=== PATIENT | male | born 1960 | race Caucasian/White ===

== ENCOUNTER 2019-07-12 15:02 | Inpatient (IN) ==
[2019-07-12] MEDS ORDERED: ASPIRIN PO ONE (15:24)
[2019-07-12 15:42] LABS: BASO# 0.06 X1000 (0.0-0.2); BASO% 0.7 % (0.0-0.8); EOS# 0.17 X1000 (0.0-0.7); EOS% 1.9 % (0.0-10.0); HEMATOCRIT 45.3 % (42.0-52.0); IMM GRAN# 0.02 X1000 (0.0-0.04); IMM GRAN% 0.2 % (0.0-0.5); LYMPH% 18.1 % (20.5-51.1); MCH 29.5 PG (27-31); MCHC 33.1 g/dL (33-37); MCV 89.2 FL (81-99); MONO# 0.48 X1000 (0.11-0.59); MONO% 5.4 % (1.7-9.3); MPV 10.2 FL (7.4-10.4); NEUT# 6.49 X1000 (1.4-6.5); NEUT% 73.7 % (42.2-75.2); PLT 300 X1000 (130-400); RBC 5.08 XMIL (4.7-6.1); RDW 12.8 % (11.5-14.5); WBC 8.82 X1000 (4.8-10.8)
[2019-07-12 15:47] LABS: INR 0.93; PROTIME 12.6 Seconds (11.0-16.0)
[2019-07-12 15:48] LABS: PTT 26.5 Seconds (22.3-41.8)
[2019-07-12 16:05] LABS: AGAP 23; ALB/GLOB RATIO 1.7; ALBUMIN 4.6 g/dL (3.5-5.0); ALKALINE PHOSPHATASE 95 U/L (32-122); BUN 13 mg/dL (8-22); CALCIUM 9.2 mg/dL (8.8-10.2); CHLORIDE 96 mmol/L (98-107); CK PROFILE 184 U/L (24-204); COSMO 280; ESTIMATED GFR > 60; GLUCOSE 140 mg/dL (70-104); GOT 37 U/L (10-34); GPT 35 U/L (10-44); POTASSIUM 4.4 mmol/L (3.5-5.1); SODIUM 139 mmol/L (136-145); TCO2 20 mmol/L (25-35); TOTAL PROTEIN 7.3 g/dL (6.3-8.3)
--- NOTE | 2019-07-12 16:13 | Diag Imaging Result Doc PS360 ---
EXAM: CHEST-2 VIEWS HISTORY: chest pain TECHNIQUE: Two views COMPARISON: None. FINDINGS: The lungs are well expanded. The heart is not enlarged. The vessels are not distended. There are no infiltrates. No pleural effusions. IMPRESSION: No acute abnormality. Electronically signed by Luis Alberto Salgado 07/12/2019 4:10 PM
[2019-07-12] MEDS ORDERED: ZOFRAN IV ONE (17:50)
[2019-07-12] MEDS ORDERED: NS 1,000 ML IV ONE (17:50)
[2019-07-12] MEDS ORDERED: NITROGLYCERIN TOP ONE (17:50)
[2019-07-12] MEDS ORDERED: MORPHINE IV ONE (17:51)
--- NOTE | 2019-07-12 18:09 | PROVIDER DOCUMENTATION ---
HPI-General Adult - General Chief Complaint: Chest Pain Stated Complaint: CP Time Seen by Provider: 07/12/19 17:46 Source: patient - History of Present Illness -Gen Adult Nature of Presenting Problems: Pt. is 59 yom that presents with c/o CP that he describes as pressure like someone sitting on him. He reports nausea, SOB and pain radiating into his left arm. He denies any cardiac Hx. Pt. is very anxious. Location of Pain/Injury: reports: chest. denies: none, head, face, mouth, neck, upper extremity, hand(s), abdomen, back, pelvis, genitalia, lower extremity, feet, upper body, lower body, generalized, other Pain Radiation: reports: arm(s) (Left). denies: no radiation, back, buttocks, chest, epigastric, feet, groin, jaw, flank (L), legs (lower), LLQ, LUQ, neck, periumbilical, flank (R), RLQ, RUQ, shoulder(s), scapula, scrotal, sternal notc h, suprapubic, legs (upper), urethral, vaginal, other Quality of Pain: reports: aching, pressure, tightness. denies: cramping, fullness, throbbing Severity: reports: moderate. denies: mild, severe Onset/Duration: reports: abrupt, this afternoon Timing: reports: still present. denies: improving, intermittent, getting worse Context/Activities at Onset: reports: none. denies: light activity, moderate activity, vigorous activity, recent emotional stress, recent physical stress, recent trauma history, possible bad food, cold exposure, eating, out of country travel, rest, sleep, sexual activity, other Modifying Factors: improves with: nothing Associated Symptoms: reports: chest pain, nausea, shortness of breath. denies: denies symptoms, anxiety, arm pain, back/neck pain, constipation, cough, diaphoresis, diarrhea, dizziness, EENT symptoms, fatigue, fever/chills, genitourinary problems, headaches, heartburn, joint pain, loss of appetite, malaise, muscle aches, sinus congestion/drainage, rash, seizure, sensory/motor loss, pain with inspiration, swelling/mass in abdomen, syncope, vomiting, weakness, trouble walking, other Similar Symptoms Previously?: No Recently seen or treated by another doctor?: No Review of Systems - Adult - REVIEW OF SYSTEMS - ADULT Constitutional: reports: no symptoms reported Eyes: reports: no symptoms reported Ears, Nose, Mouth & Throat: reports: no symptoms reported Cardiovascular: reports: see HPI, chest pain. denies: orthopnea, palpitations, syncope Respiratory: reports: see HPI, shortness of breath. denies: chronic cough, cough, pleurisy Gastrointestinal: reports: see HPI, nausea. denies: hematemesis, diarrhea, vomiting Genitourinary: reports: no symptoms reported Musculoskeletal: reports: no symptoms reported Integumentary: reports: no symptoms reported Neurological: reports: no symptoms reported Psychiatric: reports: no symptoms reported Past History - Adult - PAST MEDICAL HISTORY-ADULT Review of Records: reports: Old Records Reviewed, Nursing Assessment Review, Medications Reviewed, Social history reviewed & non-contributory. - IMMUNIZATION STATUS Childhood Immunizations: See Nurse Assessment Flu Vaccine: See Nurse Assessment - FAMILY HISTORY Family History: reviewed, not pertinent - SOCIAL HISTORY Smoking: denies Physical Exam-General - PHYSICAL EXAM-ADULT Initial Vital Signs Reviewed: Yes - CONSTITUTIONAL General Appearance: alert, moderate distress, anxious. negative: slow to respond, obtunded, combative - EYES Eyes: PERRL/EOMI, pink conjunctivae - HEAD, EARS, NOSE, MOUTH & THROAT HENMT: normocephalic/atraumatic, moist mucous membranes - NECK Neck: non-tender, full range of motion, supple, normal inspection - RESPIRATORY Respiratory: lungs clear, normal breath sounds - CARDIOVASCULAR Cardiovascular: regular rate, rhythm, no edema, tachycardia - GASTROINTESTINAL (ABDOMEN) Abdominal Exam: normal bowel sounds, non tender, soft - LYMPHATIC Lymphatic: no adenopathy - MUSCULOSKELETAL Back Exam: normal inspection, no CVA tenderness, no vertebral tenderness Extremity: normal range of motion, non-tender, normal gait, normal inspection. negative: deformity, erythema, inflammation, swelling, tenderness Peripheral Pulses: radial (R): 2+, radial (L): 2+ - SKIN Integumentary: pallor. negative: cyanosis, jaundice, tenderness - NEUROLOGIC Neurologic: grossly normal, no motor/sensory deficits - PSYCHIATRIC Psych/Mental Status: normal mood/affect, normal thought content, normal thought process, oriented x 3. negative: anxious, paranoid, tearful Progress - PLAN OF CARE/RESULTS Progress/Plan/Lab Results: Vital Signs - 8 hr 07/12/19 15:13 Temperature 98.6 F Pulse Rate 108 H Respiratory Rate 20 Blood Pressure 121/81 O2 Sat by Pulse Oximetry 96 Laboratory Results - last 24 hr 07/12/19 07/12/19 07/12/19 15:27 15:27 15:27 WBC 8.82 RBC 5.08 Hgb 15.0 Hct 45.3 MCV 89.2 MCH 29.5 MCHC 33.1 RDW Std Deviation 12.8 Plt Count 300 MPV 10.2 Immature Gran % (Auto) 0.2 Neut % (Auto) 73.7 Lymph % (Auto) 18.1 L Osborne % (Auto) 5.4 Eos % (Auto) 1.9 Baso % (Auto) 0.7 Immature Gran # (Auto) 0.02 Neut # (Auto) 6.49 Lymph # (Auto) 1.60 Osborne # (Auto) 0.48 Eos # (Auto) 0.17 Baso # (Auto) 0.06 PT INR PTT (Actin FS) Sodium 139 Potassium 4.4 Chloride 96 L Carbon Dioxide 20 L Anion Gap 23 BUN 13 Creatinine 1.0 Estimated GFR/1.73 m2 > 60 BUN/Creatinine Ratio 13 Glucose 140 H Calculated Osmolality 280 Calcium 9.2 Total Bilirubin 0.30 AST 37 H ALT 35 Alkaline Phosphatase 95 Creatine Kinase 184 Troponin T Nbw-B-Uzflsgdubvz Pept 17 Total Protein 7.3 Albumin 4.6 Globulin 2.7 Albumin/Globulin Ratio 1.7 07/12/19 07/12/19 15:27 15:27 WBC RBC Hgb Hct MCV MCH MCHC RDW Std Deviation Plt Count MPV Immature Gran % (Auto) Neut % (Auto) Lymph % (Auto) Osborne % (Auto) Eos % (Auto) Baso % (Auto) Immature Gran # (Auto) Neut # (Auto) Lymph # (Auto) Osborne # (Auto) Eos # (Auto) Baso # (Auto) PT 12.6 INR 0.93 PTT (Actin FS) 26.5 Sodium Potassium Chloride Carbon Dioxide Anion Gap BUN Creatinine Estimated GFR/1.73 m2 BUN/Creatinine Ratio Glucose Calculated Osmolality Calcium Total Bilirubin AST ALT Alkaline Phosphatase Creatine Kinase Troponin T < 0.010 Tus-Y-Aceajzbcxxp Pept Total Protein Albumin Globulin Albumin/Globulin Ratio Orders Category Date Time Status Cardiac Monitoring DIRECTED Care 07/12/19 15:24 Active Oxygen Therapy- ED Nursing DIRECTED Care 07/12/19 15:24 Active Saline Loc NOW Care 07/12/19 15:24 Active CHEST-2 VIEWS [RAD] Stat Exams 07/12/19 15:24 Completed CBC WITH ELECTRONIC DIFF [HEME] Stat Lab 07/12/19 15:27 Completed CK PROFILE [SP CHEM] Stat Lab 07/12/19 15:27 Completed CK PROFILE [SP CHEM] Stat Lab 07/12/19 17:46 Uncollected COMPREHENSIVE METABOLIC PANEL [CHEM] Stat Lab 07/12/19 15:27 Completed PRO B-NATRIURETIC PEPTIDE Stat Lab 07/12/19 15:27 Completed PROTIME WITH INR [COAG] Stat Lab 07/12/19 15:27 Completed PTT [COAG] Stat Lab 07/12/19 15:27 Completed TROPONIN T Stat Lab 07/12/19 15:27 Completed TROPONIN T Stat Lab 07/12/19 17:46 Uncollected 0.9% Sodium Chloride Inj [Ns] 1,000 ml Med 07/12/19 17:50 Discontinued IV KVO mls/hr Aspirin Med 07/12/19 15:24 Discontinued 325 mg PO NOW ONE Morphine Med 07/12/19 17:51 Discontinued 2 mg IV NOW ONE Nitroglycerin Med 07/12/19 17:50 Discontinued 1 inch TOP NOW ONE Ondansetron [Zofran] Med 07/12/19 17:50 Discontinued 4 mg IV NOW ONE CP/SOB/Palp >45 yrs of Age Stat Oth 07/12/19 15:24 Ordered EKG [EKG] Stat Ther 07/12/19 15:21 Ordered EKG [EKG] Stat Ther 07/12/19 17:46 Ordered Laboratory Tests 07/12/19 07/12/19 07/12/19 15:27 15:27 15:27 WBC 8.82 RBC 5.08 Hgb 15.0 Hct 45.3 MCV 89.2 MCH 29.5 MCHC 33.1 RDW Std Deviation 12.8 Plt Count 300 MPV 10.2 Immature Gran % (Auto) 0.2 Neut % (Auto) 73.7 Lymph % (Auto) 18.1 L Osborne % (Auto) 5.4 Eos % (Auto) 1.9 Baso % (Auto) 0.7 Immature Gran # (Auto) 0.02 Neut # (Auto) 6.49 Lymph # (Auto) 1.60 Osborne # (Auto) 0.48 Eos # (Auto) 0.17 Baso # (Auto) 0.06 PT INR PTT (Actin FS) Sodium 139 Potassium 4.4 Chloride 96 L Carbon Dioxide 20 L Anion Gap 23 BUN 13 Creatinine 1.0 Estimated GFR/1.73 m2 > 60 BUN/Creatinine Ratio 13 Glucose 140 H Calculated Osmolality 280 Calcium 9.2 Total Bilirubin 0.30 AST 37 H ALT 35 Alkaline Phosphatase 95 Creatine Kinase 184 Troponin T Acm-Y-Poehlqsoyxn Pept 17 Total Protein 7.3 Albumin 4.6 Globulin 2.7 Albumin/Globulin Ratio 1.7 07/12/19 07/12/19 15:27 15:27 WBC RBC Hgb Hct MCV MCH MCHC RDW Std Deviation Plt Count MPV Immature Gran % (Auto) Neut % (Auto) Lymph % (Auto) Osborne % (Auto) Eos % (Auto) Baso % (Auto) Immature Gran # (Auto) Neut # (Auto) Lymph # (Auto) Osborne # (Auto) Eos # (Auto) Baso # (Auto) PT 12.6 INR 0.93 PTT (Actin FS) 26.5 Sodium Potassium Chloride Carbon Dioxide Anion Gap BUN Creatinine Estimated GFR/1.73 m2 BUN/Creatinine Ratio Glucose Calculated Osmolality Calcium Total Bilirubin AST ALT Alkaline Phosphatase Creatine Kinase Troponin T < 0.010 Jqf-T-Odmvwbqqrtz Pept Total Protein Albumin Globulin Albumin/Globulin Ratio Discussed results and plan of care with patient. Patient agrees with plan and verbalizes understanding. Result Diagrams: 07/12/19 15:27 07/12/19 15:27 - EKG 1 Time of EKG reading by physician:: 14:13 EKG Read and Signed by:: Jasmeet Huizar EKG Interpretation (*Must complete 3 of following elements*): Abnormal Rate: 111 Rhythm: Sinus tach [place]: left QRS: normal [place] Interval: normal ST Wave: normal 2 Time of EKG reading by physician:: 17:59 EKG Read and Signed by:: Jasmeet Huizar EKG Interpretation (*Must complete 3 of following elements*): Abnormal Rate: 86 Rhythm: Sinus [place]: left QRS: normal [place] Interval: normal ST Wave: normal - XRAY 1 XRAY Study: Chest ([facility] - [address] , [address], [place] [address] [place] [address] Department of Imaging Patient: YANIRA SNYDER Date: 07/12/19#: [id number] : 1960ADM Status: PRE ERAcct#: [id number] Age/Sex: 59/MRoom/Bed: Loc: ED Ordering Physician: Jasmeet Huizar MD Family Physician: None,PCP Reason for Procedure: chest pain Signed EXAM: CHEST-2 VIEWS HISTORY: chest pain TECHNIQUE: Two views COMPARISON: None. FINDINGS: The lungs are well expanded. The heart is not enlarged. The vessels are not distended. There are no infiltrates. No pleural effusions. IMPRESSION: No acute abnormality. Electronically signed by Luis Alberto Salgado 07/12/2019 4:10 PM 07/12/19 161 Interpreting Physician: Luis Alberto Salgado MD Dictated Date/Time: 07/12/191609 cc: Jasmeet Huizar MD; None,PCP) XRAY Interpretation: See note - CONSULTS/PCP/HOSPITALIST Notification #1 *Consult/PCP/Hospitalist*: Vickie for hospitilist Time Discussed: 18:05 Reason/Comments: Admission Consult Disposition: Will see in ED, Admit Departure - Departure Date of Disposition Decision: 07/12/19 Time of Disposition Decision: 18:04 DIAGNOSIS: Shortness of breath Chest pain Qualifiers: Chest pain type: unspecified Qualified Code(s): R07.9 - Chest pain, unspecified Disposition: ADMITTED INPATIENT 09 Certified Medical Emergency: Emergent Condition: Stable Referrals and Follow-Ups: None,PCP [Primary Care Provider] - - Critical Care Note This patient required my direct & personal management of CC.: No Attestation - Physician/ JYOTI Attestation Patient care was provided by Advanced Practice Provider:: Yes Advanced Practice Provider:: Bernard Lopez Advanced Practice Provider documentation review:: The Mid-level provider documentation, treatment plan and medical decision making was reviewed by the physician who agrees with all treatment and medical decision making by the MLP. The physician spent face to face time with patient:: No Advanced Practice Provider documentation review:: Supervising physician onsite and consulted in the evaluation and care of this patient. The physician did not have a face to face encounter with the patient.
[2019-07-12] MEDS ORDERED: TYLENOL PO PRN (18:19)
--- NOTE | 2019-07-12 19:10 | Diag Imaging Result Doc PS360 ---
EXAM: CT ANGIOGRM PULMONARY ARTERIES HISTORY: SOB with CP TECHNIQUE: CT chest with intravenous contrast. Pulmonary arterial protocol with MIP images COMPARISON: None. FINDINGS: Suboptimal timing, but no central pulmonary emboli. No aortic aneurysm or dissection. No cardiomegaly. No pleural effusions. No enlarged lymph nodes. No infiltrates. No emphysema. No bronchiectasis. There is fatty infiltration of the liver. IMPRESSION: No pulmonary emboli identified This exam was performed using automated exposure control, adjustment of mA or kV according to patient size, and/or use of iterative reconstruction technique. Electronically signed by Luis Alberto Salgado 07/12/2019 7:08 PM
--- NOTE | 2019-07-12 19:15 | HISTORY AND PHYSICAL ---
CHIEF COMPLAINT: Left-sided chest pain, left arm pain, shortness of breath, nausea. HISTORY OF PRESENT ILLNESS: This is a 59-year-old gentleman, who presented to the emergency room complaining of a sudden onset of left-sided chest pain that he described as stabbing pressure type pain. He has had persistent shortness of breath since pains began. He does have shortness of breath with walking across a flat floor. He has not tried stairs. He does describe some pain and "a funny feeling" that goes into his axillary area, down the underside of his arm down to his palm. 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 He denied any syncope, any vomiting, any palpitations. Mr. Mason also complained of pain to his left leg, particularly in his calf. He does have a positive Homans sign. He states that he has had difficulty walking. Over the last 3 to 4 days, walking has become more difficult due to the pain. He recently traveled from [place] to [place], then from [place] back to [place], sitting for long periods of time, and he states the left leg pain started within 24 hours of travel. PAST MEDICAL HISTORY: Denies. PAST SURGICAL HISTORY: Denies. SOCIAL HISTORY: He denies any alcohol, tobacco or illicit drug use. FAMILY HISTORY: The patient denies any blood clots, clotting disorders. He does state his grandparents have hypertension. He denies any coronary artery disease. ALLERGIES: None recorded. HOME MEDICATIONS: None. REVIEW OF SYSTEMS: This is discussed with the patient with pertinent positives stated in the HPI. He denied any syncope, any palpitations, any vomiting, diarrhea, constipation, black or bloody vomitus or stools, hematuria, dysuria, frequency or urgency. No fevers or chills. PHYSICAL EXAMINATION: GENERAL: This is a 59-year-old gentleman, who is sitting on the stretcher in the emergency room, who is anxious. VITAL SIGNS: Blood pressure is 121/81 with a heart rate of 108, respirations are 20, temperature is 98.6 degrees with room air saturation 96%. EYES: Pupils are equal, round, react to light. EOMS are intact. Sclerae are anicteric. HENT: Head is normocephalic, atraumatic. Mucous membranes are moist. NECK: Supple with trachea midline. No JVD. CARDIOVASCULAR: Regular rate and rhythm. S1 and S2 appreciated. No murmur. No S3. He has no lower extremity edema. Right calf is nontender; left calf is tender with peripheral pulses palpable x4 extremities. PULMONARY: Breath sounds are clear with no increased work of breathing noted. Chest rises and falls symmetric with respiration. Chest wall is nontender to palpation. GASTROINTESTINAL: Abdomen is soft, nontender, nondistended with bowel sounds in all 4 quadrants. GENITOURINARY: No CVA or suprapubic tenderness. NEUROLOGIC: He is alert and oriented x3. SKIN: Warm and dry. LABS: WBC is 8.8 with a hemoglobin of 15, hematocrit of 45.3, and platelets of 300. INR is 0.93. Sodium 139, potassium 4.4, BUN 13, creatinine 1 with a glucose of 140. Troponins are negative on multiple occasions. CTA pulmonary pending. X-RAYS: Chest x-ray reveals no acute abnormality. ASSESSMENT: 1. Left-sided chest pressure. 2. Shortness of breath. 3. Left calf pain with a positive Homans sign. 4. Tachycardia. PLAN: The patient will be admitted to the medical floor. He will be placed on telemetry continue with IV hydration, giving morphine for pain and Zofran for nausea. trend troponins and cardiac profile. CBC , BMP,and EKG in the morning. venous Doppler of his lower extremities Further treatments pending hospital course. Dictated by LISSETT Borja for Fernando Huerta MD cc: LISSETT Borja MD [facility]
--- NOTE | 2019-07-12 20:07 | HISTORY AND PHYSICAL ---
ADDENDUM: HISTORY: Mr. Mason came in this more this afternoon with acute onset of left-sided chest pain associated with some nauseation and vomit, according to him, and left calf pain. Upon presentation, his blood pressure was 121/81, pulse of 108, respirations 20, temperature 98.6 degrees. Mr. Mason denies any alcohol or tobacco use. His current physical exam for most part is unremarkable except for some chest tenderness on the costochondral joints. LABORATORY DATA: Has also been reviewed. CBC is completely normal. CMP is also normal. STUDIES: An initial chest x-ray showed no acute abnormality. A CTA of the lungs is also completely negative for pulmonary emboli and no obvious pneumonia or any other parenchymal disease. So far his troponins have been done twice and are negative. His EKG was sinus. There was no ST-T wave abnormality. ASSESSMENT: Atypical chest pain. Some features are more consistent with costochondral. However, we are going to admit him to rule out any coronary artery. So far his troponins have been twice negative. A CT of the lungs is also negative. Please refer to the details of the history and physical that have been dictated by the BUNCHER MACHINE in the chart. cc: Fernando Huerta MD
--- NOTE | 2019-07-12 20:37 | EKG Report ---
Test Performed on : 07/12/2019 5:56:30 PM Test Reason : CP Blood Pressure : / mmHG Vent. Rate : 086 BPM Atrial Rate : 086 BPM P-R Int : 168 ms QRS Dur : 088 ms QT Int : 366 ms P-R-T Axes : 048 -39 031 degrees QTc Int : 437 ms Normal sinus rhythm. Possible Left atrial enlargement Left axis deviation Abnormal ECG When compared with ECG of 12-JUL-2019 15:08, (Unconfirmed) No significant change was found Unconfirmed Result
[2019-07-12] MEDS: MORPHINE IV PRN (20:55)
[2019-07-12] MEDS: ZOFRAN IV PRN (21:21)
--- NOTE | 2019-07-12 21:22 | EKG Report ---
Test Performed on : 07/12/2019 3:08:48 PM Test Reason : CP Blood Pressure : / mmHG Vent. Rate : 111 BPM Atrial Rate : 111 BPM P-R Int : 160 ms QRS Dur : 082 ms QT Int : 332 ms P-R-T Axes : 047 -81 033 degrees QTc Int : 451 ms Sinus tachycardia. Possible Left atrial enlargement Left axis deviation Inferior infarct , age undetermined Abnormal ECG No previous ECGs available Unconfirmed Result
[2019-07-12] MEDS: NS 1,000 ML IV SCH (21:41)
[2019-07-12] MEDS: NORCO-7.5 PO PRN (21:41)
[2019-07-13] MEDS: MORPHINE IV PRN ×4 (00:58→21:07)
[2019-07-13] MEDS: ZOFRAN IV PRN ×4 (00:58→18:19)
[2019-07-13] MEDS ORDERED: G.I. COCKTAIL PO ONE (02:12)
[2019-07-13] MEDS: ATIVAN IV PRN ×4 (02:27→22:41)
[2019-07-13] MEDS: NS 1,000 ML IV SCH ×4 (05:03→22:41)
[2019-07-13] MEDS: NORCO-7.5 PO PRN (05:03)
[2019-07-13] MEDS: PRILOSEC PO SCH ×2 (05:04→06:03)
[2019-07-13 07:31] LABS: BASO# 0.03 X1000 (0.0-0.2); BASO% 0.4 % (0.0-0.8); EOS# 0.14 X1000 (0.0-0.7); EOS% 1.7 % (0.0-10.0); HEMATOCRIT 39.4 % (42.0-52.0); LYMPH# 1.05 X1000 (1.2-3.4); LYMPH% 12.4 % (20.5-51.1); MCV 90.8 FL (81-99); MONO# 0.67 X1000 (0.11-0.59); MONO% 7.9 % (1.7-9.3); MPV 10.7 FL (7.4-10.4); NEUT# 6.55 X1000 (1.4-6.5); NEUT% 77.6 % (42.2-75.2); PLT 204 X1000 (130-400); RBC 4.34 XMIL (4.7-6.1); RDW 12.8 % (11.5-14.5); WBC 8.44 X1000 (4.8-10.8)
[2019-07-13 07:45] LABS: AGAP 11; BUN 11 mg/dL (8-22); CALCIUM 8.3 mg/dL (8.8-10.2); CHLORIDE 97 mmol/L (98-107); COSMO 273; ESTIMATED GFR > 60; GLUCOSE 186 mg/dL (70-104); POTASSIUM 4.1 mmol/L (3.5-5.1); SODIUM 134 mmol/L (136-145); TCO2 26 mmol/L (25-35)
--- NOTE | 2019-07-13 09:52 | EKG Report ---
Test Performed on : 07/13/2019 05:41:23 AM Test Reason : cp Blood Pressure : / mmHG Vent. Rate : 096 BPM Atrial Rate : 096 BPM P-R Int : 172 ms QRS Dur : 088 ms QT Int : 364 ms P-R-T Axes : 046 -41 024 degrees QTc Int : 459 ms Normal sinus rhythm. Left axis deviation Abnormal ECG When compared with ECG of 12-JUL-2019 17:56, (Unconfirmed) No significant change was found Confirmed by Jj GREEN, P.J.M ([id number]) on 07/14/2019 1:10:36 PM
--- NOTE | 2019-07-13 10:05 | PROGRESS NOTE ---
DATE: 07/13/2019 SUBJECTIVE: Today Mr. Mason refers to be doing a little better. He said he had an episode of chest discomfort, some nauseation and vomited multiple times yesterday. Almost at the end of the encounter, Mr. Mason told us he lost his 18-year-old daughter about 2 months ago to leukemia. He also lost his dad and his mom recently, all of which according to him is putting a lot of stress on him, and he has sought to use a lot of alcohol. He said he takes about 8 to 12 bottles of the 24-ounce alcohol which is beer 8% on a daily basis. This morning he obviously looks quite flushed. He is fidgeting. He has some residual tremors. OBJECTIVE: Current vitals: Blood pressure is 119/75, pulse of 79, respirations 20, temperature is 97.9 degrees. General exam: Mr. Mason is a 59-year-old gentleman. He is in bed. He does not look to be in any cardiopulmonary distress. HEENT: Mucosa is pink. Anicteric. Acyanotic. Neck: Supple. Chest: Clear. Cardiovascular: Regular rate and rhythm. Abdomen: Soft, nontender. Extremities: No pedal edema. 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 He is conversational. He looks slightly pressured on his wording and he looks tremulous. LABORATORY DATA: CBC is for the most part unremarkable. Chemistry is also okay, except sodium that is 134. The patient had troponin 4 times and they have all been negative. IMAGING STUDIES: Imaging studies that were done yesterday: A chest x-ray showed no acute abnormality. A CTA showed no pulmonary emboli identified. An EKG which was repeated yesterday did not show any acute changes either. ASSESSMENT: 1. Chest pain, most likely musculoskeletal in nature. 2. History of alcohol use and abuse with patient showing signs of withdrawal. We are going to put him on Librium as needed, Ativan, gabapentin, and re-evaluate him. The patient will also be started on banana bag and continue with intravenous fluids. 3. Questionable situational anxiety and depressive disorder. cc: Fernando Huerta MD
[2019-07-13 11:41] LABS: UR AMPHETAMINES QUAL NONE DETECTED (NONE DETECT); UR BARBITUATES QUAL NONE DETECTED (NONE DETECT); UR BENZODIAZEPIN QUAL NONE DETECTED (NONE DETECT); UR CANNABINOIDS QUAL NONE DETECTED (NONE DETECT); UR COCAINE QUAL NONE DETECTED (NONE DETECT); UR METHADONE QUAL NONE DETECTED (NONE DETECT); UR OPIATES QUAL PRESUMPTIVE POSITIVE (NONE DETECT); UR OXYCODONE QUAL NONE DETECTED (NONE DETECT); UR PCP QUAL NONE DETECTED (NONE DETECT)
[2019-07-13] MEDS: NEURONTIN PO SCH ×2 (12:29→21:06)
[2019-07-13] MEDS: LIBRIUM PO SCH ×2 (12:29→21:06)
[2019-07-13] MEDS: ROBAXIN PO SCH (21:07)
[2019-07-14] MEDS: ATIVAN IV PRN ×2 (04:22→10:15)
[2019-07-14] MEDS: MORPHINE IV PRN ×2 (04:22→08:17)
[2019-07-14] MEDS: PRILOSEC PO SCH (06:12)
[2019-07-14 06:58] LABS: BASO# 0.04 X1000 (0.0-0.2); BASO% 0.7 % (0.0-0.8); EOS% 10.5 % (0.0-10.0); HEMATOCRIT 39.2 % (42.0-52.0); HEMOGLOBIN 12.5 g/dL (14.0-18.0); LYMPH# 1.19 X1000 (1.2-3.4); LYMPH% 20.9 % (20.5-51.1); MCH 29.8 PG (27-31); MCHC 31.9 g/dL (33-37); MCV 93.6 FL (81-99); MONO# 0.62 X1000 (0.11-0.59); MONO% 10.9 % (1.7-9.3); MPV 10.4 FL (7.4-10.4); NEUT# 3.25 X1000 (1.4-6.5); PLT 187 X1000 (130-400); RBC 4.19 XMIL (4.7-6.1)
[2019-07-14] MEDS: NORCO-7.5 PO PRN (07:43)
[2019-07-14] MEDS: NEURONTIN PO SCH (08:16)
[2019-07-14] MEDS: LIBRIUM PO SCH (08:16)
[2019-07-14] MEDS: ROBAXIN PO SCH (08:16)
[2019-07-14 08:17] VITALS: BP 129/78
[2019-07-14] MEDS: ZOFRAN IV PRN (08:17)
[2019-07-14] MEDS ORDERED: M.V.I.-12 10 ML, FOLIC ACID 1 MG, MAGNESIUM SULFATE 1 GM, THIAMINE 100 MG in NS 1,000 ML IV SCH (09:00)
[2019-07-14] MEDS: NS 1,000 ML IV SCH (09:30)
--- NOTE | 2019-07-14 11:24 | Extremity Venous Study ---
PROCEDURE NAME: Venous U/S Bilateral Legs - 07/12/2019 REAMING MACHINE OPERATOR FOR PLASTIC: Yvan. REQUESTING PHYSICIAN: Ellie. INDICATIONS: Left calf pain with normal D-dimer. FINDINGS: The deep and superficial veins of the bilateral lower extremities were visualized along their course. All vessels were compressible with forward flow. No evidence of intraluminal thrombus. There was an incidentally noted left popliteal fossa cyst. SUMMARY: Left Wharton's cyst. No deep venous DVT or superficial thrombus noted in the bilateral lower extremities. cc: MD Erma Tavarez CRNP
--- NOTE | 2019-07-14 16:00 | DISCHARGE SUMMARY ---
ADMISSION DATE: 07/12/2019 DISCHARGE DATE: 07/14/2019 DISPOSITION: Home. CONSULTATION DURING THIS ADMISSION: None. INVASIVE PROCEDURES DONE DURING THIS ADMISSION: None. IMAGING STUDIES OF SIGNIFICANCE: 1. Chest x-ray showed no acute abnormality. 2. Extremity Doppler ultrasound showed no DVT. There was a left Wharton's cyst. 3. CT angio of the pulmonary arteries showed no pulmonary emboli. EKG: The patient had EKG 3 times. No acute changes noted. ADMISSION DIAGNOSES: 1. Left-sided chest pressure. 2. Shortness of breath. 3. Left calf pain. 4. Tachycardia. DIAGNOSIS AT TIME OF DISCHARGE: 1. Chest pain secondary to musculoskeletal (costochondritis). 2. Alcohol use and abuse. 3. Mild signs of alcohol withdrawal during the hospital course. 4. History of anxiety and depression disorder. DISCHARGE MEDICATIONS: 1. Gabapentin 100 mg b.i.d. 2. Omeprazole 40 mg p.o. daily. 3. Robaxin 500 b.i.d. 4. Librium 5 mg b.i.d. 5. Tylenol 650 p.o. p.r.n. PRESENTING COMPLAINT: Left-sided chest pain, shortness of breath. HISTORY OF PRESENTING COMPLAINT: Mr. Mason is a 59-year-old male who presented to the emergency department because of acute onset of left-sided chest pain. According to him, he had just traveled on a long trip from [place] to [place], then [place] to [place], and since then he has been having this chest pain, left side, associated with shortness of breath. He was admitted initially to rule out any cardiac issue. We did also have a CTA of the lungs to rule out any PE, which came back negative. Mr. Mason was admitted to the medical floor. HOSPITAL COURSE: Mr. Mason was admitted to the medical floor, was fluid resuscitated. Pain was controlled with both p.o. and IV pain medications. He felt better. I understand the night after his admission he had multiple episodes of nausea and vomiting. He became very confused and agitated. The morning of yesterday he seemed slightly tremulous, so we asked him about his alcohol use, and he was very open and said he drinks a lot, usually more than about 8 to 12 bottles of the big 24 ounce beer bottles, and that he has been going through a lot of issues that he is having difficulty to adjust to. He was found to be in mild alcohol withdrawal. He was started on Librium and gabapentin. This morning, he feels a whole lot better. Per the nursing staff, he has been very time-conscious demanding his pain medications, however. In any case, all his troponins have been trended 4 times; they have been negative. His EKG has also been unrevealing. On physical exam, he has more tenderness on palpation of the costochondral joint. We think his current chest pain is noncardiac, and also we think he was withdrawing slightly from alcohol use. However, that has been stabilized. We think this morning Mr. Mason is medically stable for discharge, and we have given him information to go to [facility] in [place] for outpatient management. Objectively, his current vitals: Blood pressure is 129/78, pulse of 70, respirations 20, temperature 97.9 degrees. The patient is in stable condition for discharge. All the discharge instructions discussed with him. He voiced understanding. Time spent for discharge is 38 minutes. cc: Fernando Huerta MD [facility]
== END 2019-07-14 11:28 | disposition home or self-care (01) | DRG 206 ==
LOC: ED 15:02 → 3N 20:38
PROVIDERS: ATTEND Internal Medicine